=== PATIENT | female | born 1990 ===

== ENCOUNTER 2022-04-02 22:29 | Emergency (ER) | payer OTHER ==
[~2022-04-02] VITALS: Ht 177.8 cm; Wt 81.6 kg
[2022-04-03] MEDS ORDERED: ONDANSETRON ODT4 MG PO (04:46)
[2022-04-03] MEDS ORDERED: PEPCID40 MG PO (04:46)
== END 2022-04-03 05:26 ==
LOC: ER 22:29
DX: R10.13 Epigastric pain (principal); Z91.013 Allergy to seafood